=== PATIENT | male | born 1955 | race Caucasian/White ===

== ENCOUNTER 2023-10-31 07:52 | Day surgery (SDC) | payer OTHER ==
[2023-10-24 13:51] VITALS: BMI 47.4
[2023-10-31] MEDS ORDERED: LIDOCAINE 1% P/F 10 MG/ML VIAL ONE (08:00)
[2023-10-31] MEDS ORDERED: NEO/POLYMYX B SULF/DEXAMETH OPHTHALMIC 5ML BOTTLE ONE (08:00)
[2023-10-31] MEDS ORDERED: BSS (NA/CA/MG/K) BALANCED SALT SOLUTION OPHTH SOLN 15 ML BOTTLE ONE (08:00)
[2023-10-31] MEDS ORDERED: CARBACHOL 0.01% INTRA-OCULAR 1.5 ML VIAL ONE (08:00)
[2023-10-31] MEDS ORDERED: TETRACAINE 0.5% OPHTH SOLN 2 ML BOTTLE ONE (08:00)
[2023-10-31] MEDS ORDERED: EPINEPHrine/PF 1 MG/1 ML (1:1,000) AMPULE ONE (08:00)
[2023-10-31] MEDS: TROPICAMIDE 1% OPHTH SOLN 15 ML BOTTLE ONE (08:20)
[2023-10-31] MEDS: CIPROFLOXACIN 0.3% EYE DROPS 5 ML BOTTLE ONE (08:20)
[2023-10-31] MEDS: PHENYLEPHRINE 2.5% OPTHALMIC DROP 2ML BOTTLE ONE (08:20)
[2023-10-31] MEDS: CYCLOPENTOLATE 2% OPHTH SOLN 2 ML BOTTLE ONE (08:20)
[2023-10-31] MEDS ORDERED: MIDAZOLAM HCL 2 MG/2 ML SINGLE DOSE VIAL ONE (09:26)
[2023-10-31 10:26] VITALS: RESP 18; TEMP 97.9
[2023-10-31 10:27] VITALS: BP 133/76; PULSE 67
== END 2023-10-31 11:10 | disposition home or self-care (01) ==
LOC: FASU 07:52
PROVIDERS: ATTEND Ophthalmology
PROC: 08RJ3JZ Replacement of Right Lens with Synthetic Substitute, Percutaneous Approach (ICD-10-PCS; principal; 2023-10-31 09:28)
DX: H26.8 Other specified cataract (principal)
CPT/HCPCS: 66984; V2632; 82962

== ENCOUNTER 2023-12-19 10:42 | Day surgery (SDC) | payer OTHER ==
[2023-12-17 16:18] VITALS: BMI 47.4
[2023-12-19] MEDS ORDERED: CYCLOPENTOLATE 2% OPHTH SOLN 2 ML BOTTLE ONE (10:51)
[2023-12-19] MEDS ORDERED: TROPICAMIDE 1% OPHTH SOLN 15 ML BOTTLE ONE (10:52)
[2023-12-19] MEDS ORDERED: CIPROFLOXACIN 0.3% EYE DROPS 5 ML BOTTLE ONE (10:52)
[2023-12-19] MEDS ORDERED: PHENYLEPHRINE 2.5% OPTHALMIC DROP 2ML BOTTLE ONE (10:52)
[2023-12-19] MEDS ORDERED: NEO/POLYMYX B SULF/DEXAMETH OPHTHALMIC 5ML BOTTLE ONE (10:56)
[2023-12-19] MEDS ORDERED: BSS (NA/CA/MG/K) BALANCED SALT SOLUTION OPHTH SOLN 15 ML BOTTLE ONE (10:56)
[2023-12-19] MEDS ORDERED: CARBACHOL 0.01% INTRA-OCULAR 1.5 ML VIAL ONE (10:56)
[2023-12-19] MEDS ORDERED: TETRACAINE 0.5% OPHTH SOLN 2 ML BOTTLE ONE (10:56)
[2023-12-19] MEDS ORDERED: LIDOCAINE 1% P/F 10 MG/ML VIAL ONE (10:56)
[2023-12-19 12:37] VITALS: BP 139/85; PULSE 77; RESP 19; TEMP 97.9
== END 2023-12-19 13:00 | disposition home or self-care (01) ==
LOC: FASU 10:42
PROVIDERS: ATTEND Ophthalmology
PROC: 08RK3JZ Replacement of Left Lens with Synthetic Substitute, Percutaneous Approach (ICD-10-PCS; principal; 2023-12-19 12:11)
DX: H26.8 Other specified cataract (principal)
CPT/HCPCS: 66984; V2632; 82010; 82962